=== PATIENT | female | born 1995 | race African-American/Black ===

== ENCOUNTER 2018-01-10 23:01 | Emergency (ER) | payer BC ==
[~2018-01-10] VITALS: Ht 167.6 cm; Wt 75.0 kg
[~2018-01-10 23:01] MED LIST: CARA1TAB6 PO; DICY10 PO; MOBI15TA PO; PROT40TA PO; ROBA750T PO
[2018-01-10 23:30] VITALS: BP 130/77; PULSE 76; RESP 18; TEMP 98.6; O2SAT 100; O2SAT 98
[2018-01-10] MEDS ORDERED: ALBU0.63 NEB (23:44)
[2018-01-11] MEDS ORDERED: SODIUM CHLOR 0.9% 1000 ML INJ 1,000 ML IV SCH (00:03)
[2018-01-11] MEDS ORDERED: RESP: ALBUTEROL 2.5 MG/IPRATROPIUM 0.5 MG NEB (SCH) INH ONE (00:15)
[2018-01-11] MEDS ORDERED: ALUMINUM/MAGNESIUM/SIMETH 30 ML CUP PO ONE (00:15)
[2018-01-11] MEDS ORDERED: LIDOCAINE VISCOUS 2% SOLN 15 ML UDC PO ONE (00:15)
[2018-01-11] MEDS ORDERED: LORazepam 2 MG/ML VIAL IV PUSH ONE (00:15)
[2018-01-11 00:37] LABS: AUTOMATED NEUTROPHIL # 4.1 TH/MM3 (1.8-7.7); BASOPHIL # 0.1 TH/MM3 (0-0.2); BASOPHIL % 0.9 % (0.0-2.0); EOSINOPHIL % 0.5 % (0.0-4.0); HEMATOCRIT 37.9 % (35.0-46.0); HEMOGLOBIN 12.7 GM/DL (11.6-15.3); LYMPH % 33.2 % (9.0-44.0); LYMPHOCYTE # 2.4 TH/MM3 (1.0-4.8); MEAN CORPUSCULAR HEMOGLOBIN 25.8 PG (27.0-34.0); MEAN CORPUSCULAR HGB CONC 33.5 % (32.0-36.0); MEAN PLATELET VOLUME 7.9 FL (7.0-11.0); MONO % 9.5 % (0.0-8.0); MONOCYTE # 0.7 TH/MM3 (0-0.9); NEUT % 55.9 % (16.0-70.0); PLATELET COUNT 351 TH/MM3 (150-450); RED BLOOD COUNT 4.93 MIL/MM3 (4.00-5.30); RED CELL DISTRIBUTION WIDTH 16.2 % (11.6-17.2); WHITE BLOOD COUNT 7.3 TH/MM3 (4.0-11.0)
[2018-01-11 00:41] LABS: BACTERIA, URINE RARE /hpf; BILIRUBIN, URINE NEG (NEG); BLOOD, URINE NEG (NEG); GLUCOSE,URINE NEG (NEG); KETONE, URINE 10 mg/dL (NEG); MUCUS URINE FEW /lpf (OCC); NITRITE,URINE NEG (NEG); PH, URINE 7.5 (5.0-8.5); SQUAMOUS EPITHELIAL CELL URINE 6 /hpf (0-5); TRANSITIONAL EPI CELLS, URINE <1 /hpf; URINE COLOR YELLOW (YELLW/STRAW); URINE LEUKOCYTE ESTERASE NEG (NEG)
[2018-01-11 00:59] LABS: AST (GOT) 18 U/L (15-37); BICARBONATE 25.4 MEQ/L (21.0-32.0); BLOOD UREA NITROGEN 7 MG/DL (7-18); CALCIUM 9.1 MG/DL (8.5-10.1); CHLORIDE 105 MEQ/L (98-107); GLOMERULAR FILTRATION RATE 94 ML/MIN (>89); GLUCOSE,RANDOM 95 MG/DL (74-106); SODIUM (NA) 140 MEQ/L (136-145)
[2018-01-11 01:02] LABS: ALKALINE PHOSPHATASE 74 U/L (45-117); ALT (GPT) 19 U/L (10-53); TOTAL BILIRUBIN ADULT 0.4 MG/DL (0.2-1.0); TOTAL PROTEIN 8.1 GM/DL (6.4-8.2)
[2018-01-11] MEDS ORDERED: ZOFR4TAB3 SL (01:55)
--- NOTE | 2018-01-11 01:56 | PD ---
HPI Chief Complaint: GI Complaint Time Seen by Provider: 00:03 Travel History International Travel<30 days: No Contact w/Intl Traveler<30days: No Traveled to known affect area: No History of Present Illness HPI 22-year-old female arrives complaining of shortness of breath and abdominal pain. Additional complaints include vomiting since 7 AM, about 18 hours prior to ER arrival. She also complains of dizziness. No loss of consciousness. The patient reports a history of asthma however does not use an inhaler. She denies fever. Pain intensity is ready to be 8/10. Last menstruation is reported to be at the end of November. Location epigastric. Pain is constant. Has sharp quality. PFSH Past Medical History Hx Anticoagulant Therapy: No Asthma: Yes Cardiovascular Problems: Yes (PRECARDIAL CATCH SYNDROME) Chemotherapy: No Cerebrovascular Accident: No Diabetes: No Diminished Hearing: No Respiratory: Yes (ASTHMA) Immunizations Current: Yes ?: Not LMP: "ENDING OF NOV" Menopausal: No Past Surgical History Surgical History: No Previous Surgery Hysterectomy: No Social History Alcohol Use: Yes Tobacco Use: No Substance Use: No Allergies-Medications (Allergen,Severity, Reaction): Coded Allergies: amoxicillin (Verified Allergy, Severe, Anaphylaxis, 01/10/18) Uncoded Allergies: ORANGES (Allergy, Severe, Anaphylaxis, 12/10/17) Reported Meds & Prescriptions Reported Meds & Active Scripts Active Proair Hfa 8.5 GM Inh (Albuterol Sulfate) 90 Mcg/Act Aer 2 Puff INH Q6H PRN 108 mcg/actuation Zofran Odt (Ondansetron Odt) 4 Mg Tab 4 Mg SL Q8HR PRN Reported Albuterol Neb (Albuterol Sulfate) 0.63 Mg/3 Ml Neb 0.63 Mg NEB Q4HR NEB PRN Review of Systems Except as stated in HPI: all other systems reviewed are Neg General / Constitutional: No: Fever Physical Exam Narrative GENERAL: Well-nourished well-developed 22-year-old female mild to moderate distress hyperventilating difficulty answering questions Vital Signs Date Time Temp Pulse Resp B/P (MAP) Pulse Ox O2 Delivery O2 Flow Rate FiO2 01/10/18 23:30 98.6 76 18 130/77 (94) 100 SKIN: Warm and dry. HEAD: Atraumatic. Normocephalic. EYES: Pupils equal and round. No scleral icterus. No injection or drainage. ENT: No nasal bleeding or discharge. Mucous membranes pink and moist. NECK: Trachea midline. No JVD. CARDIOVASCULAR: Regular rate and rhythm. RESPIRATORY: Breath sounds are clear bilaterally. Respiratory rate about 20. GASTROINTESTINAL: Soft. Generalized nonspecific guarding. MUSCULOSKELETAL: Extremities without clubbing, cyanosis, or edema. No obvious deformities. NEUROLOGICAL: Awake and alert. No obvious cranial nerve deficits. Motor grossly within normal limits. Five out of 5 muscle strength in the arms and legs. Normal speech. PSYCHIATRIC: Appropriate mood and affect; insight and judgment normal. Data Data Last Documented VS Vital Signs Date Time Temp Pulse Resp B/P (MAP) Pulse Ox O2 Delivery O2 Flow Rate FiO2 01/10/18 23:30 98.6 76 18 130/77 (94) 100 01/10/18 23:30 Room Air Orders Orders Complete Blood Count With Diff (01/10/18 23:45) Comprehensive Metabolic Panel (01/10/18 23:45) Urinalysis - C+S If Indicated (01/10/18 23:45) Ed Urine Pregnancytest Poc (01/10/18 23:45) Iv Access Insert/Monitor (01/10/18 23:45) Oxygen Administration (01/10/18 23:45) Oximetry (01/10/18 23:45) Lipase (01/10/18 23:45) Albuterol-Ipratropium Neb (Duoneb Neb) (01/11/18 00:15) Lorazepam Inj (Ativan Inj) (01/11/18 00:15) Sodium Chlor 0.9% 1000 Ml Inj (Ns 1000 M (01/11/18 00:03) Al-Mag Hy-Si 40-40-4 Mg/Ml Liq (Mag-Al P (01/11/18 00:15) Lidocaine 2% Viscous (Xylocaine 2% Visco (01/11/18 00:15) Ed Discharge Order (01/11/18 01:56) Labs Laboratory Tests Test 01/11/18 00:14 01/11/18 00:23 White Blood Count 7.3 TH/MM3 Red Blood Count 4.93 MIL/MM3 Hemoglobin 12.7 GM/DL Hematocrit 37.9 % Mean Corpuscular Volume 77.0 FL Mean Corpuscular Hemoglobin 25.8 PG Mean Corpuscular Hemoglobin Concent 33.5 % Red Cell Distribution Width 16.2 % Platelet Count 351 TH/MM3 Mean Platelet Volume 7.9 FL Neutrophils (%) (Auto) 55.9 % Lymphocytes (%) (Auto) 33.2 % Monocytes (%) (Auto) 9.5 % Eosinophils (%) (Auto) 0.5 % Basophils (%) (Auto) 0.9 % Neutrophils # (Auto) 4.1 TH/MM3 Lymphocytes # (Auto) 2.4 TH/MM3 Monocytes # (Auto) 0.7 TH/MM3 Eosinophils # (Auto) 0.0 TH/MM3 Basophils # (Auto) 0.1 TH/MM3 CBC Comment DIFF FINAL Differential Comment Blood Urea Nitrogen 7 MG/DL Creatinine 0.90 MG/DL Random Glucose 95 MG/DL Total Protein 8.1 GM/DL Albumin 4.0 GM/DL Calcium Level 9.1 MG/DL Alkaline Phosphatase 74 U/L Aspartate Amino Transf (AST/SGOT) 18 U/L Alanine Aminotransferase (ALT/SGPT) 19 U/L Total Bilirubin 0.4 MG/DL Sodium Level 140 MEQ/L Potassium Level 3.8 MEQ/L Chloride Level 105 MEQ/L Carbon Dioxide Level 25.4 MEQ/L Anion Gap 10 MEQ/L Estimat Glomerular Filtration Rate 94 ML/MIN Lipase 116 U/L Urine Color YELLOW Urine Turbidity CLEAR Urine pH 7.5 Urine Specific [place] 1.015 Urine Protein NEG mg/dL Urine Glucose (UA) NEG mg/dL Urine Ketones 10 mg/dL Urine Occult Blood NEG Urine Nitrite NEG Urine Bilirubin NEG Urine Urobilinogen LESS THAN 2.0 MG/DL Urine Leukocyte Esterase NEG Urine RBC LESS THAN 1 /hpf Urine WBC 1 /hpf Urine Squamous Epithelial Cells 6 /hpf Urine Transitional Epithelial Cells <1 /hpf Urine Bacteria RARE /hpf Urine Mucus FEW /lpf Microscopic Urinalysis Comment CULT NOT INDICATED MDM Medical Decision Making Medical Screen Exam Complete: Yes Emergency Medical Condition: Yes Medical Record Reviewed: Yes Differential Diagnosis Constipation, Gastritis, Acute Cholecystitis, Biliary Colic, Pancreatitis, VALDOVINOS , Hepatitis, Bowel Obstruction, Cystitis, Mesenteric Ischemia, AAA, Appendicitis , Renal Stone/Hydronephrosis, GERD, perforated viscous Narrative Course CBC & BMP Diagram 01/11/18 00:14 Total Protein 8.1, Albumin 4.0, Calcium Level 9.1, Alkaline Phosphatase 74, Aspartate Amino Transf (AST/SGOT) 18, Alanine Aminotransferase (ALT/SGPT) 19, Total Bilirubin 0.4 Patient received IV fluids as well as albuterol nebulizers. Patient found resting comfortably in bed. She was found sound asleep. At the time of reassessment she is primarily concerned with the location of her sister. She reported an albuterol inhaler will be of some benefit. Diagnosis Primary Impression: Nausea & vomiting Qualified Codes: R11.2 - Nausea with vomiting, unspecified Additional Impressions: Epigastric abdominal pain Asthma exacerbation Qualified Codes: J45.901 - Unspecified asthma with (acute) exacerbation Referrals: Primary Care Physician 2 days Med/Other Pt SpecificInfo: Prescription(s) given Scripts Albuterol 8.5 GM Inh (Proair Hfa 8.5 GM Inh) 90 Mcg/Act Aer 2 PUFF INH Q6H Y for SHORTNESS OF BREATH, #1 INHALER 0 Refills 108 mcg/actuation Prov: Shaun Carbone MD 01/11/18 Ondansetron Odt (Zofran Odt) 4 Mg Tab 4 MG SL Q8HR Y for Nausea/Vomiting, #10 TAB 0 Refills Prov: Shaun Carbone MD 01/11/18 Disposition: DISCHARGE HOME Condition: Stable Shaun Carbone MD Jan 11, 2018 01:56
[2018-01-11] MEDS ORDERED: ALBUAER3 INH (02:29)
== END 2018-01-11 02:38 | disposition home or self-care (01) ==
LOC: NEPE 23:01
DX: R11.2 Nausea with vomiting, unspecified (principal); R10.13 Epigastric pain; J45.901 Unspecified asthma with (acute) exacerbation; R42 Dizziness and giddiness; Z86.79 Personal history of other diseases of the circulatory system
CPT/HCPCS: 80053; 81001; 83690; 84703; 85025; 94664; 96361; 96374; 99284; J2060; J7030

== ENCOUNTER 2018-02-26 00:38 | Emergency (ER) | payer BC ==
[~2018-02-26 00:38] MED LIST changes: +ALBU0.63 NEB; +ALBUAER3 INH; -CARA1TAB6 PO; -DICY10 PO; -MOBI15TA PO; -PROT40TA PO; -ROBA750T PO; +ZOFR4TAB3 SL
== END 2018-02-26 00:45 | disposition left against medical advice (07) ==
LOC: NED 00:45
DX: R11.10 Vomiting, unspecified (principal)
CPT/HCPCS: 99281